=== PATIENT | female | born 1955 | race Caucasian/White ===

== ENCOUNTER 2019-11-18 08:16 | Day surgery (SDC) | payer MEDICARE, MEDICAID ==
[2019-11-18] VITALS (221 sets, daily range): BP systolic 135–155; BP diastolic 70–87; PULSE 78–97; TEMP 97.5–98.5; O2SAT 87–100
[~2019-11-18] VITALS: Ht 152.4 cm; Wt 137.0 kg
[2019-11-18 09:04] LABS: RED BLOOD COUNT 4.68 M/mm3 (4.10-5.30)
[2019-11-18 09:05] LABS: HEMOGLOBIN 11.7 g/dl (12.5-16.0); MEAN CELL VOLUME 78 fl (80.0-100.0); MEAN CORPUSCULAR HEMOGLOBIN 25 pg (27.0-31.0); MEAN CORPUSCULAR HGB CONC 32 g/dl (33.0-37.0); MEAN PLATELET VOLUME 10.2 fl (7.4-10.4); PLATELET COUNT 325 K/mm3 (130-400); REDCELL DISTRIBUTION WIDTH-CV 16.4 % (11.5-14.5)
[2019-11-18] MEDS ORDERED: PROZAC 20MG20 MG PO (09:17)
[2019-11-18] MEDS ORDERED: AMARYL4 MG PO (09:19)
[2019-11-18 09:20] LABS: PROTHROMBIN TIME 11.9 SECONDS (9.7-12.8)
[2019-11-18] MEDS ORDERED: IMDUR 30MG30 MG/TAB PO (09:20)
[2019-11-18 09:21] LABS: CALCIUM 9.3 mg/dL (8.4-10.2); CREATININE, serum 1.44 (0.52-1.25); POTASSIUM 4.1 mmol/L (3.4-5.0)
[2019-11-18] MEDS ORDERED: COREG 3.123.125 MG/T PO (09:21)
[2019-11-18 09:22] LABS: PARTIAL THROMBOPLASTIN TIME 27.3 SECONDS (26.0-37.0)
[2019-11-18] MEDS ORDERED: DALIRESP500 MCG PO (09:22)
[2019-11-18] MEDS ORDERED: ASPIRIN E.C. 8181 MG PO (09:23)
[2019-11-18] MEDS ORDERED: PRINZIDE 25 MG-1 TAB PO (09:23)
[2019-11-18] MEDS ORDERED: LASIX 20MG TABL20 MG PO (09:24)
[2019-11-18] MEDS ORDERED: LIPITOR 40MG TA40 MG PO (09:24)
[2019-11-18] MEDS ORDERED: NATURAL IRON65 MG PO (09:25)
[2019-11-18] MEDS ORDERED: ACIDOPHILIS PO (09:26)
[2019-11-18] MEDS ORDERED: VICTOZA6 MG/ML SQ (09:26)
[2019-11-18 09:27] LABS: HEMATOCRIT 36.7 % (37.0-47.0)
--- NOTE | 2019-11-18 10:02 | NUR ---
SEE MERGE FOR MEDICATION ADMINISTRATION TIMES AND INTRA AND POST SEDATION ASSESSMENTS.
--- NOTE | 2019-11-18 12:00 | NUR ---
Pt to IMCU RM 11, A&O, laying flat. VSS. Pt has rt radial site, CDI, no hematoma, TR band w/ 17 cc of air inflated. Pt also has rt groin site with gauze/tegaderm, CDI, soft to touch, no hematoma. Pt denies any pain. Pulses are strong radially and to distally. Flat time started at 1200. Pt on 4L oxy mask. RT to come and put pt on cpap.
--- NOTE | 2019-11-18 15:30 | NUR ---
Pt still on flat time, rt groin site has remained, CDI, soft to touch. Rt radial site is CDI. 5ml air released without any bleeding noted. RT placed pt on cpap while resting. Pt has been sleeping during flat time. Nitro gtt at 3ml/hr and 1/2 NS running to RAC w/o complications.
--- NOTE | 2019-11-18 17:00 | NUR ---
report given to SHINE martinez. Pt coming off flat time, rt groin site, CDI, soft to touch. Rt radial site, 5 ml/air removed, no active bleeding noted. pulses strong bilaterally radial. Distal pulses palpable.
--- NOTE | 2019-11-18 20:10 | NUR ---
REPORT GIVEN TO SHINE PELLETIER. RADIAL AND FEMORAL SITES EXAMINED. ALL AIR OUT OF TR BAND AT THIS TIME. VS WNL. PT HAS NO COMPLAINTS. NITRO GTT RATE REVIEWED. 1/2 NS AT 100 CC/HR REVIEWED.
--- NOTE | 2019-11-18 21:00 | NUR ---
Received report from SHINE Holman. Alert and oriented. Denies any pain or discomfort at this time. Rt radial band and arm board removed. No active bleeding observed, slight ecchymosis to site, soft to touch, bandage in place, distal pulses palpable. Rt groin soft to touch, dressing CDI with scant drainage observed. Meds administered as ordered. Needs met at this time. Call light within reach. Rivas assist pt to BSC, with urine output. Pt places own cpap on.
[2019-11-19] VITALS (324 sets, daily range): BP systolic 120–132; BP diastolic 64–89; PULSE 79–82; TEMP 98–98.1; O2SAT 83–100
--- NOTE | 2019-11-19 07:00 | NUR ---
Pt made no complaints during the night. Standby assist to BSC x1. Needs met. Call light within reach.
--- NOTE | 2019-11-19 07:24 | NUR ---
Report given to SHINE Holman.
[2019-11-19 08:15] LABS: BASO % 0.1 % (0.0-2.0); EOS # 0.1 (0.0-0.7); EOS % 0.9 % (0-4.0); GRAN # 10.7 (1.4-6.5); GRAN % 77.2 % (42.2-75.2); HEMOGLOBIN 10.3 g/dl (12.5-16.0); LYMPH # 2.2 (1.2-3.4); LYMPH % 15.8 % (20.0-51.0); MEAN CELL VOLUME 79 fl (80.0-100.0); MEAN CORPUSCULAR HEMOGLOBIN 25 pg (27.0-31.0); MEAN CORPUSCULAR HGB CONC 32 g/dl (33.0-37.0); MONO # 0.8 (0.1-0.6); MONO % 5.7 % (1.7-9.3); PLATELET COUNT 282 K/mm3 (130-400); RED BLOOD COUNT 4.13 M/mm3 (4.10-5.30); REDCELL DISTRIBUTION WIDTH-CV 16.2 % (11.5-14.5)
[2019-11-19 08:17] LABS: HEMATOCRIT 32.4 % (37.0-47.0)
[2019-11-19 08:29] LABS: CALCIUM 8.7 mg/dL (8.4-10.2); CREATININE, serum 1.47 (0.52-1.25); POTASSIUM 3.8 mmol/L (3.4-5.0)
--- NOTE | 2019-11-19 09:12 | NUR ---
SW met with the patient to discuss discharge plan. The patient lives alone in [place]. Her brother and sister also live in [place]. She reports independence with ADLs and has a cane, wheelchair, electric wheelchair, and a CPAP and home oxygen from [facility]. She states that she also has a personal care aid from an agency out of [place]. The patient's PCP is Dr. Arpita Kennedy and she receives her medications at [facility]. She reports no difficulties obtaining her meds. The patient does not have advanced directives in EMR, but she reports that she does have them completed. She states that her daughter, Arpita (ph#[phone]), is her DPOA-HC. Arpita lives in [place]. The patient plans to return back home upon discharge. No additional needs at this time.
[2019-11-19] MEDS ORDERED: BRILINTA90 MG PO (10:30)
--- NOTE | 2019-11-19 11:25 | NUR ---
The patient is to discharge back home today, 11/18. She states she needs a ride through her Medicaid. SW contacted Medicaid [employer] and scheduled the patient a ride. Trip ID#[id number]. No additional needs at this time.
== END 2019-11-19 12:40 | disposition home or self-care (01) ==
LOC: COL.CAR 08:16 → EU 11:55 → COL.CAR 11-19 12:40
PROVIDERS: Internal Medicine Cardiovascular Disease; Nurse Practitioner
DX: I25.110 Atherosclerotic heart disease of native coronary artery with unstable angina pectoris (principal); I10 Essential (primary) hypertension; E78.5 Hyperlipidemia, unspecified; Z88.6 Allergy status to analgesic agent; Z88.8 Allergy status to other drugs, medicaments and biological substances
CPT/HCPCS: OP; C9600; J0583; J1644; J2250; J2405; J3010; Q9967